=== PATIENT | female | born 1965 | race Caucasian/White ===

== ENCOUNTER 2018-07-09 22:32 | Emergency (ER) | payer MEDICAID ==
[~2018-07-09] VITALS: Ht 177.8 cm; Wt 90.7 kg
[2018-07-09 22:36] VITALS: BP 138/68
--- NOTE | 2018-07-09 23:34 | NUR ---
PT IN GOWN IN [facility] AT THIS TIME.
--- NOTE | 2018-07-10 00:34 | NUR ---
PT D/C WITH D/C SUMMARY AND SCRIPTS. ALL QUESTIONS ANSWERED. PT DENIES ANY OTHER NEEDS PERTAINING TO THIS VISIT. PT EDUCATED ON HOME CARE INSTRUCTIONS AND VERBALIZES UNDERSTANDING.
== END 2018-07-10 00:37 | disposition home or self-care (01) ==
LOC: ED 07-10 00:27
DX: M54.2 Cervicalgia (principal); M54.5 Low back pain; F17.200 Nicotine dependence, unspecified, uncomplicated
CPT/HCPCS: 99283

== ENCOUNTER 2018-07-25 12:21 | Emergency (ER) | payer MEDICAID ==
[~2018-07-25] VITALS: Ht 177.8 cm; Wt 88.0 kg
[2018-07-25 12:26] VITALS: BP 109/71
== END 2018-07-25 15:12 | disposition home or self-care (01) ==
LOC: ED 13:00
DX: S52.121A Displaced fracture of head of right radius, initial encounter for closed fracture (principal); S00.31XA Abrasion of nose, initial encounter; S00.81XA Abrasion of other part of head, initial encounter; F17.200 Nicotine dependence, unspecified, uncomplicated; W20.8XXA Other cause of strike by thrown, projected or falling object, initial encounter; Y93.89 Activity, other specified; Y92.410 Unspecified street and highway as the place of occurrence of the external cause; Y99.8 Other external cause status
CPT/HCPCS: 29105; 99283